=== PATIENT | female | born 1995 | race African-American/Black ===

== ENCOUNTER 2016-11-24 20:26 | Observation (INO) | payer OTHER ==
[~2016-11-24] VITALS: Ht 162.6 cm; Wt 63.0 kg
[~2016-11-24 20:26] MED LIST: ONDA4TAB5; PREN1CAP
[2016-11-24] MEDS ORDERED: FOLI-43 PO (21:07)
[2016-11-24] MEDS ORDERED: IRON-1 PO (21:07)
[2016-11-24] MEDS ORDERED: LACTATED RINGERS 1,000 ML IV SCH (23:30)
[2016-11-24 23:42] LABS: CLARITY URINE CLOUDY (CLEAR); COLOR URINE YELLOW (YELLOW); KETONES URINE 1+ (NEGATIVE); LEUKOCYTE ESTERASE URINE 3+ (NEGATIVE); NITRITE URINE NEGATIVE (NEGATIVE); OCCULT BLOOD URINE NEGATIVE (NEGATIVE); PROTEIN URINE TRACE (NEGATIVE); SPECIFIC GRAVITY URINE 1.025 (1.005-1.030)
[2016-11-25] MEDS ORDERED: CEFAZOLIN 2,000 MG in DEXT 5% WATER 100 ML IV NR ×2
[2016-11-25] MEDS ORDERED: ONDANSETRON HCL 4MG/2ML VIAL IV NR (01:15)
== END 2016-11-25 02:00 | disposition home or self-care (01) ==
LOC: L&D 20:26
PROVIDERS: ADMIT Obstetrics & Gynecology; ATTEND Obstetrics & Gynecology
DX: O26.892 Other specified pregnancy related conditions, second trimester (principal); R10.30 Lower abdominal pain, unspecified; M54.5 Low back pain; O21.2 Late vomiting of pregnancy; Z3A.27 27 weeks gestation of pregnancy
CPT/HCPCS: 81001; 96365; 96375; 99281; G0378; J0690; J2405; J7120; 96360; 96361; J7060; A4315

== ENCOUNTER 2016-12-30 18:42 | Observation (INO) | payer OTHER ==
[~2016-12-30] VITALS: Ht 162.6 cm; Wt 65.8 kg
[~2016-12-30 18:42] MED LIST changes: +FOLI-43 PO; +IRON-1 PO; -ONDA4TAB5
[2016-12-30 20:05] LABS: CLARITY URINE CLOUDY (CLEAR); COLOR URINE YELLOW (YELLOW); GLUCOSE URINE NEGATIVE (NEGATIVE); KETONES URINE NEGATIVE (NEGATIVE); LEUKOCYTE ESTERASE URINE 3+ (NEGATIVE); NITRITE URINE NEGATIVE (NEGATIVE); OCCULT BLOOD URINE NEGATIVE (NEGATIVE); PROTEIN URINE TRACE (NEGATIVE); SPECIFIC GRAVITY URINE 1.029 (1.005-1.030)
[2016-12-30] MEDS ORDERED: ACETAMINOPHEN 500MG TABLET PO NR (20:45)
[2016-12-30] MEDS ORDERED: DEXT 5%/LACTATED RINGERS 500 ML IV NR (20:45)
[2016-12-30] MEDS ORDERED: AMPICILLIN 2,000 MG in SODIUM CHLORIDE 0.9% 100 ML IV NR (21:00)
== END 2016-12-30 22:45 | disposition home or self-care (01) ==
LOC: L&D 18:42
PROVIDERS: ADMIT Obstetrics & Gynecology; ATTEND Obstetrics & Gynecology
DX: O26.893 Other specified pregnancy related conditions, third trimester (principal); R10.9 Unspecified abdominal pain; Z3A.32 32 weeks gestation of pregnancy
CPT/HCPCS: 81001; 96365; 99281; G0378; J0290; 96360; 96361; J7050

== ENCOUNTER 2018-07-16 13:07 | Emergency (ER) | payer MEDICAID, OTHER ==
[~2018-07-16] VITALS: Ht 162.6 cm; Wt 59.0 kg
[2018-07-16 18:41] LABS: CLARITY URINE TURBID (CLEAR); COLOR URINE YELLOW (YELLOW); KETONES URINE 3+ (NEGATIVE); LEUKOCYTE ESTERASE URINE 2+ (NEGATIVE); NITRITE URINE POSITIVE (NEGATIVE); OCCULT BLOOD URINE NEGATIVE (NEGATIVE); PH URINE 6.5 (4.5-8.0); PROTEIN URINE TRACE (NEGATIVE); SPECIFIC GRAVITY URINE 1.027 (1.005-1.030)
[2018-07-16] MEDS ORDERED: ONDANSETRON HCL 4MG/2ML INJ IV ONE (19:15)
[2018-07-16] MEDS ORDERED: SODIUM CHLORIDE 0.9% IRRIG SOLUTION 1000ML IR ONE (19:15)
[2018-07-16] MEDS ORDERED: SODIUM CHLORIDE 0.9% 1,000 ML IR NR (19:30)
[2018-07-16] MEDS ORDERED: CEFTRIAXONE 1 G PREMIX 50 ML IV ONE (19:30)
[2018-07-16 19:44] LABS: BASOPHILS % 0.3 % (0.0-2.0); EOSINOPHILS % 0.3 % (0.0-5.0); HEMATOCRIT. 33.3 % (36.0-48.0); HEMOGLOBIN. 10.1 g/dL (12.0-16.0); LYMPHOCYTES % 26.9 % (20.0-50.0); MEAN CORPUSCULAR HEMOGLOBIN 18.5 pg (28.0-32.0); MEAN CORPUSCULAR VOLUME 61.2 fL (81.0-99.0); MEAN PLATELET VOLUME 8.8 fl (7.4-10.4); NEUTROPHILS % 67.5 % (40.0-76.0); PLATELET 258 x1000/uL (130-400); RED BLOOD CELL COUNT 5.45 mill/uL (4.2-5.4); RED CELL DISTRIBUTION WIDTH 23.1 % (11.6-14.6)
[2018-07-16 19:53] LABS: CHLORIDE 104 mEq/L (98-107)
[2018-07-16 20:03] LABS: PLATELET ESTIMATE NORMAL
[2018-07-17 02:02] VITALS: BP 109/92
== END 2018-07-17 02:24 | disposition home or self-care (01) ==
LOC: ER 13:49
DX: O23.01 Infections of kidney in pregnancy, first trimester (principal); Z3A.10 10 weeks gestation of pregnancy
CPT/HCPCS: 36415; 76801; 76817; 80053; 81003; 81025; 83690; 84702; 85025; 96361; 96365; 96375; 99284; J0696; J2405

== ENCOUNTER 2018-10-05 13:13 | Observation (INO) | payer MEDICAID ==
[~2018-10-05] VITALS: Ht 162.6 cm; Wt 63.5 kg
[2018-10-05 14:20] LABS: CLARITY URINE CLEAR (CLEAR); COLOR URINE YELLOW (YELLOW); KETONES URINE NEGATIVE (NEGATIVE); LEUKOCYTE ESTERASE URINE NEGATIVE (NEGATIVE); NITRITE URINE NEGATIVE (NEGATIVE); OCCULT BLOOD URINE NEGATIVE (NEGATIVE); PROTEIN URINE NEGATIVE (NEGATIVE); SPECIFIC GRAVITY URINE 1.024 (1.005-1.030)
== END 2018-10-05 15:55 | disposition home or self-care (01) ==
LOC: L&D 13:13
PROVIDERS: ADMIT Obstetrics & Gynecology; ATTEND Obstetrics & Gynecology
DX: O26.852 Spotting complicating pregnancy, second trimester (principal); O26.892 Other specified pregnancy related conditions, second trimester; R10.9 Unspecified abdominal pain; N89.8 Other specified noninflammatory disorders of vagina; Z3A.22 22 weeks gestation of pregnancy
CPT/HCPCS: 81003; 99281; G0378